=== PATIENT | male | born 1940 | race Caucasian/White ===

== ENCOUNTER 2016-09-05 04:49 | Observation (INO) | payer OTHER ==
[~2016-09-05] VITALS: Ht 175.3 cm; Wt 122.4 kg
[~2016-09-05 04:49] MED LIST: AMLACTIN140 GM TP; ASPIR-LOW81 MG PO; BENZONATATE100 MG PO; CATAPRES0.1 MG PO; CLINDAMYCIN HC300 MG PO; CLONIDINE HCL0.1 MG PO; COREG25 M1 PO; COREG25 MG PO; COUMADIN,JANTO2.5 MG PO; COUMADIN,JANTOVE5 MG PO; COUMADIN3 MG PO; DIOVAN HCT 11 TABLET PO; DIOVAN320 MG PO; FUROSEMIDE20 MG PO; FUROSEMIDE40 MG PO; HYDROCHLOROTH12.5 M3 PO; LASIX40 MG PO; MUCINEX600 MG PO; PERCOCET 5/31 TABLET PO; PRAVACHOL40 MG PO; PREDNISONE20 MG PO; PYRIDIUM100 MG PO; TOBRAMYCIN-DEXAM5 ML BOTH EYES; TRAMADOL HCL50 MG PO; VALSARTAN-HCTZ1 EAC4 PO; WARFARIN SODIUM3 MG PO; ZITHROMAX250 MG PO
[2016-09-05] MEDS ORDERED: ASPIR 8181 M1 PO (05:10)
[2016-09-05] MEDS ORDERED: CARVEDILOL25 MG PO (05:10)
[2016-09-05] MEDS ORDERED: CLONIDINE HCL0.1 MG PO (05:10)
[2016-09-05] MEDS ORDERED: PRAVACHOL10 MG PO (05:11)
[2016-09-05] MEDS ORDERED: FUROSEMIDE40 MG PO (05:11)
[2016-09-05] MEDS ORDERED: VALSARTAN320 MG PO (05:11)
[2016-09-05] MEDS ORDERED: WARFARIN SODIU2.5 MG PO (05:12)
[2016-09-05 05:18] LABS: CHLORIDE 104 mEq/L (99-109); POTASSIUM 3.8 mEq/L (3.7-5.4); SODIUM 139 mEq/L (136-147)
[2016-09-05 05:20] LABS: GLUCOSE 158 mg/dL (70-99)
[2016-09-05 05:22] LABS: ANION GAP 9 MEQ/L (2-14)
[2016-09-05 05:24] LABS: GFR ESTIMATE (CALCULATED) > 59 mL/min/
[2016-09-05 05:25] LABS: UREA NITROGEN (BUN) 11 mg/dL (9-23)
[2016-09-05 05:29] LABS: HEMATOCRIT 36.2 % (38.0-50.0); MCH 30.1 PG (29.0-34.0); MCV 88.5 FL (86-99); MEAN PLAT.VOLUME 9.9 uM^3 (9.0-12.4); PLATELET COUNT 178 K/uL (156-360); RBC DIS.WIDTH-CV 13.4 % (11.8-14.6); RBC DIS.WIDTH-SD 42.2 % (39-53); RED BLOOD COUNT 4.09 M/uL (4.00-5.50); WHITE BLOOD COUNT 8.9 K/uL (4.1-10.2)
[2016-09-05 05:30] LABS: TROP-I INTERPRETATION NEGATIVE; TROPONIN-I 0.01 ng/mL (0.0-0.30)
[2016-09-05 05:36] LABS: INTER. NORMALIZED RATIO 2.6; PROTHROMBIN TIME 27.7 (9.2-11.2)
[2016-09-05 08:20] VITALS: BP 131/105
[2016-09-05 11:04] LABS: TROP-I INTERPRETATION NEGATIVE; TROPONIN-I 0.02 ng/mL (0.0-0.30)
[2016-09-05] MEDS ORDERED: TEMOVATE 0.05%30 GM TP (11:26)
[2016-09-05] MEDS ORDERED: ROBITUSSIN DM118 ML PO (11:27)
[2016-09-05 12:13] VITALS: BP 106/63
[2016-09-05 15:50] VITALS: BP 127/73
[2016-09-05 17:03] LABS: TROP-I INTERPRETATION NEGATIVE; TROPONIN-I 0.02 ng/mL (0.0-0.30)
[2016-09-05 20:55] VITALS: BP 148/84
[2016-09-06 00:30] VITALS: BP 119/70
[2016-09-06 03:46] VITALS: BP 131/80
[2016-09-06 04:45] VITALS: BP 141/81
[2016-09-06 05:18] LABS: HEMATOCRIT 36.1 % (38.0-50.0); MCH 29.5 PG (29.0-34.0); MCHC 32.7 G/DL (30.0-36.0); MCV 90.3 FL (86-99); RBC DIS.WIDTH-CV 13.6 % (11.8-14.6); RBC DIS.WIDTH-SD 44.8 % (39-53); WHITE BLOOD COUNT 7.3 K/uL (4.1-10.2)
[2016-09-06 05:45] LABS: ALKALINE PHOSPHATASE 31 IU/L (3-129); ANION GAP 10 MEQ/L (2-14); CHLORIDE 99 MEQ/L (99-109); GFR ESTIMATE (CALCULATED) > 59 mL/min/; GLUCOSE 129 mg/dL (70-99); POTASSIUM 3.5 MEQ/L (3.7-5.4); SAMPLE HEMOLYSIS CHECK 0; SAMPLE ICTERIC CHECK 1; SAMPLE LIPEMIA CHECK 0; SODIUM 139 MEQ/L (136-147); TOTAL BILIRUBIN 2.4 MG/DL (0.0-1.0); UREA NITROGEN (BUN) 12 mg/dL (9-23)
[2016-09-06 06:13] LABS: INTER. NORMALIZED RATIO 2.3; PROTHROMBIN TIME 24.3 (9.2-11.2)
[2016-09-06 07:41] LABS: MEAN PLAT.VOLUME 9.8 uM^3 (9.0-12.4); PLATELET COUNT 192 K/uL (156-360)
[2016-09-06 08:10] VITALS: BP 127/86
[2016-09-06 12:25] VITALS: BP 134/61
== END 2016-09-06 12:50 | disposition home or self-care (01) ==
LOC: EME → EDBD 04:49 → EDOF 07:22 → 5WEST 07:22 → EDOF 07:22 → 5WEST 08:08
PROVIDERS: Hospitalist; Nurse Practitioner Adult Health
DX: I11.0 Hypertensive heart disease with heart failure (principal); I50.23 Acute on chronic systolic (congestive) heart failure; I48.2 Chronic atrial fibrillation; I87.8 Other specified disorders of veins; L97.329 Non-pressure chronic ulcer of left ankle with unspecified severity; I27.2 Other secondary pulmonary hypertension; E78.5 Hyperlipidemia, unspecified; Z95.810 Presence of automatic (implantable) cardiac defibrillator; Z86.711 Personal history of pulmonary embolism; Z86.718 Personal history of other venous thrombosis and embolism; Z79.01 Long term (current) use of anticoagulants
CPT/HCPCS: 71020; 80048; 80048 91; 80053; 83880; 84484; 85027; 85610; 87502; 93005; 94799; 99281; 99285; G0378; J1940

== ENCOUNTER 2016-09-26 07:35 | Observation (INO) | payer OTHER ==
[~2016-09-26] VITALS: Ht 175.3 cm; Wt 121.5 kg
[~2016-09-26 07:35] MED LIST changes: +ASPIR 8181 M1 PO; +CARVEDILOL25 MG PO; +PRAVACHOL10 MG PO; +ROBITUSSIN DM118 ML PO; +TEMOVATE 0.05%30 GM TP; +VALSARTAN320 MG PO; +WARFARIN SODIU2.5 MG PO
[2016-09-26 08:38] LABS: ADD MIUA? YES; BILIRUBIN NEGATIVE; BLOOD SMALL; COLOR YELLOW ((YELLOW)); GLUCOSE (STRIP) NEGATIVE; KETONES NEGATIVE; LEUKOCYTES NEGATIVE; NITRITE NEGATIVE; PROTEIN (STRIP) 30; SPECIFIC GRAVITY 1.013 (1.000-1.030); UROBILINOGEN 0.2 MG/DL (0.2-1.0)
[2016-09-26 08:48] LABS: BACTERIA RARE /HPF; EPITHELIAL CELLS RARE /HPF; MUCUS TRACE /LPF; RED BLOOD CELLS 0-5 /HPF (0-5); UCUL ADDED? NO; WHITE BLOOD CELLS 0-5 /HPF (0-5)
[2016-09-26 09:03] LABS: HEMATOCRIT 39.5 % (38.0-50.0); MCH 30.3 PG (29.0-34.0); MCHC 32.4 G/DL (30.0-36.0); MCV 93.4 FL (86-99); PLATELET COUNT 156 K/uL (156-360); RBC DIS.WIDTH-CV 14.4 % (11.8-14.6); RED BLOOD COUNT 4.23 M/uL (4.00-5.50); WHITE BLOOD COUNT 6.3 K/uL (4.1-10.2)
[2016-09-26 09:13] LABS: CHLORIDE 100 mEq/L (99-109); POTASSIUM 4.2 mEq/L (3.7-5.4); SODIUM 139 mEq/L (136-147)
[2016-09-26 09:16] LABS: GLUCOSE 141 mg/dL (70-99)
[2016-09-26 09:17] LABS: ANION GAP 13 MEQ/L (2-14)
[2016-09-26 09:19] LABS: ALKALINE PHOSPHATASE 35 IU/L (3-129); GFR ESTIMATE (CALCULATED) > 59 mL/min/
[2016-09-26 09:20] LABS: UREA NITROGEN (BUN) 11 mg/dL (9-23)
[2016-09-26 09:26] LABS: TROP-I INTERPRETATION NEGATIVE; TROPONIN-I < 0.01 ng/mL (0.0-0.30)
[2016-09-26] MEDS ORDERED: PRAVACHOL40 MG PO (12:42)
[2016-09-26] MEDS ORDERED: TEMOVATE 0.05%60 GM TP (12:43)
[2016-09-26 13:52] LABS: PROTHROMBIN TIME 31.2 (9.2-11.2)
[2016-09-26 14:23] VITALS: BP 145/81
[2016-09-26 17:05] LABS: TROP-I INTERPRETATION NEGATIVE; TROPONIN-I 0.01 ng/mL (0.0-0.30)
[2016-09-26 19:00] VITALS: BP 133/75
[2016-09-26 23:04] LABS: TROP-I INTERPRETATION NEGATIVE; TROPONIN-I < 0.01 ng/mL (0.0-0.30)
[2016-09-26 23:39] VITALS: BP 139/96
[2016-09-27 04:00] VITALS: BP 132/84
[2016-09-27 07:42] LABS: INTER. NORMALIZED RATIO 3.1; PROTHROMBIN TIME 32.9 (9.2-11.2)
[2016-09-27 07:43] LABS: ALKALINE PHOSPHATASE 34 IU/L (3-129); DIRECT BILIRUBIN 0.6 mg/dL (0.0-0.3); TOTAL BILIRUBIN 4.2 MG/DL (0.0-1.0)
[2016-09-27 08:00] VITALS: BP 183/97
== END 2016-09-27 13:16 | disposition home or self-care (01) ==
LOC: EME 07:35 → EDOF 11:12 → 5WEST 11:12 → EDOF 11:12 → 5WEST 14:06
PROVIDERS: Emergency Medicine; Internal Medicine; Specialist
DX: I11.0 Hypertensive heart disease with heart failure (principal); I50.9 Heart failure, unspecified; E80.6 Other disorders of bilirubin metabolism; I87.8 Other specified disorders of veins; L97.329 Non-pressure chronic ulcer of left ankle with unspecified severity; R09.02 Hypoxemia; K76.0 Fatty (change of) liver, not elsewhere classified; I27.2 Other secondary pulmonary hypertension; I35.0 Nonrheumatic aortic (valve) stenosis; Z95.810 Presence of automatic (implantable) cardiac defibrillator; I48.2 Chronic atrial fibrillation; Z86.718 Personal history of other venous thrombosis and embolism; Z79.01 Long term (current) use of anticoagulants; E66.9 Obesity, unspecified; Z68.39 Body mass index [BMI] 39.0-39.9, adult; E78.5 Hyperlipidemia, unspecified; I25.2 Old myocardial infarction
CPT/HCPCS: 71020; 76705; 80053; 80076; 81003; 83880; 84484; 85027; 85610; 93005; 99281; 99284; G0378; J1940